=== PATIENT | female | born 1960 | race Caucasian/White ===

== ENCOUNTER 2017-09-03 17:11 | Emergency (ER) | payer OTHER ==
[2017-09-03] MEDS ORDERED: BENADRYL 50 MG/ML IV ONE (17:34)
[2017-09-03] MEDS ORDERED: Sodium Chloride 0.9% 1000 ML 1,000 ML IV STA (17:34)
[2017-09-03] MEDS ORDERED: DUONEB 0.5-3 MG/3 ml Neb IH ONE ×2 (17:34→17:48)
[2017-09-03] MEDS ORDERED: solu-MEDROL 125 MG IV ONE (17:34)
--- NOTE | 2017-09-03 17:39 | ERPHSYRPT ---
- History of Present Illness Time Seen by Provider: 09/03/17 17:36 Source: patient Exam Limitations: no limitations Patient Subjective Stated Complaint: concern for possible allergic reaction; states took an amoxicillin (refill) and was eating dinner when began having c/o tongue swelling and states voice was hoarse Triage Nursing Assessment: patient ambulatory to room; lungs CTA bilat, voice is hoarse which patient claims is new, cough, pt states has been having "upper respiratory infection" No vomiting, nausea, hives noted on assessment Physician History: mild tongue swelling and hoarse today at dinner after taking amoxil, no rash, no drooling, no stridor, hx smoking and htn, no fever Allergies/Adverse Reactions: No Known Drug Allergies Allergy (Unverified 01/04/15 05:49) Home Medications: Trandolapril/Verapamil HCl [Tarka ER 1-240 mg Tablet] 1 each PO DAILY 01/03/15 [ History] Hx Influenza Vaccination/Date Given: Yes Immunizations Up to Date: Yes - Review of Systems Constitutional: No Fever Eyes: No Symptoms Ears, Nose, & Throat: Mouth Swelling, No Mouth Pain, No Throat Swelling, No Painful Swallowing, No Stridor Respiratory: Dyspnea Cardiac: No Symptoms Abdominal/Gastrointestinal: No Symptoms Musculoskeletal: No Symptoms Skin: No Symptoms Neurological: No Symptoms Psychological: No Symptoms - Past Medical History Pertinent Past Medical History: No Neurological History: No Pertinent History ENT History: No Pertinent History Cardiac History: Hypertension Respiratory History: No Pertinent History Endocrine Medical History: No Pertinent History Musculoskeletal History: No Pertinent History GI Medical History: No Pertinent History History: No Pertinent History Psycho-Social History: No Pertinent History Female Reproductive Disorders: No Pertinent History - Past Surgical History Past Surgical History: No Neuro Surgical History: No Pertinent History Cardiac: No Pertinent History Respiratory: No Pertinent History Gastrointestinal: No Pertinent History Genitourinary: No Pertinent History Musculoskeletal: No Pertinent History Female Surgical History: No Pertinent History - Social History Smoking Status: Current every day smoker How long have you smoked: yrs Exposure to second hand smoke: Yes Drug Use: none - Nursing Vital Signs Nursing Vital Signs: Initial Vital Signs Temperature 97.8 F 09/03/17 17:22 Pulse Rate 100 H 09/03/17 17:22 Respiratory Rate 24 09/03/17 17:22 Blood Pressure 163/99 09/03/17 17:22 O2 Sat by Pulse Oximetry 92 L 09/03/17 17:22 Pain Scale Pain Intensity 0 - Physical Exam General Appearance: no apparent distress Eye Exam: PERRL/EOMI Ears, Nose, Throat Exam: pharynx normal, moist mucous membranes, other (mild tongue swelling) Neck Exam: normal inspection Respiratory Exam: normal breath sounds, No respiratory distress Cardiovascular Exam: regular rate/rhythm Gastrointestinal/Abdomen Exam: soft, No tenderness Extremity Exam: normal inspection, normal range of motion Neurologic Exam: alert, oriented x 3, cooperative Skin Exam: normal color, warm, dry SpO2 Interpretation: borderline oxygenation SpO2: 93 Oxygen Delivery: Room Air - Course Nursing assessment & vital signs reviewed: Yes Ordered Tests: Active Orders 24 hr Category Date Time Status IV Insertion STAT Care 09/03/17 17:34 Active Pulse Oximetry (ED) STAT Care 09/03/17 17:34 Active Respiratory Nebulizer STAT RT 09/03/17 17:35 Completed Medication Summary Generic Name Dose Route Start Last Admin Trade Name Freq PRN Reason Stop Dose Admin Sodium Chloride 1,000 mls @ 999 mls/hr 09/03/17 17:34 09/03/17 17:59 Sodium Chloride 0.9% 1000 Ml IV 09/03/17 18:34 999 mls/hr .Q1H1M STA Administration Discontinued Medications Generic Name Dose Route Start Last Admin Trade Name Freq PRN Reason Stop Dose Admin Albuterol/Ipratropium 3 ml 09/03/17 17:34 09/03/17 17:50 Duoneb 0.5-3 Mg/3 Ml Neb IH 09/03/17 17:35 3 ml STAT ONE Administration Albuterol/Ipratropium Confirm 09/03/17 17:48 Duoneb 0.5-3 Mg/3 Ml Neb Administered 09/03/17 17:49 Dose 3 ml IH .STK-MED ONE Diphenhydramine HCl 50 mg 09/03/17 17:34 09/03/17 17:59 Benadryl 50 Mg/Ml IV 09/03/17 17:35 50 mg STAT ONE Administration Diphenhydramine HCl Confirm 09/03/17 17:54 Benadryl 50 Mg/Ml Administered 09/03/17 17:55 Dose 50 mg .ROUTE .STK-MED ONE Sodium Chloride Confirm 09/03/17 17:54 Sodium Chloride 0.9% 1000 Ml Administered 09/03/17 17:55 Dose 1,000 mls @ ud .ROUTE .STK-MED ONE Methylprednisolone Sodium Succinate 125 mg 09/03/17 17:34 09/03/17 17:59 Solu-Medrol 125 Mg IV 09/03/17 17:35 125 mg STAT ONE Administration Methylprednisolone Sodium Succinate Confirm 09/03/17 17:54 Solu-Medrol 125 Mg Administered 09/03/17 17:55 Dose 125 mg .ROUTE .STK-MED ONE - Progress Progress: improved Discussed with : Breezy Will see patient in: office Counseled pt/family regarding: diagnosis, need for follow-up (medrol dose pk, EpiPen Kit, benadryl warnings given, proventil inhaler) - Departure Time of Disposition: 18:23 Departure Disposition: Home Clinical Impression: Allergic reaction Qualifiers: Encounter type: initial encounter Qualified Code(s): T78.40XA - Allergy, unspecified, initial encounter Condition: Stable Critical Care Time: No Referrals: JESS ORELLANA MD [Primary Care Provider] - Additional Instructions: see your doctor return if worse stop amoxicillin script for medrol, epi pen kit and proventil inhaler
[2017-09-03] MEDS ORDERED: Sodium Chloride 0.9% 1000 ML 1,000 ML ONE (17:54)
[2017-09-03] MEDS ORDERED: solu-MEDROL 125 MG ONE (17:54)
[2017-09-03] MEDS ORDERED: BENADRYL 50 MG/ML ONE (17:54)
[2017-09-03 18:11] VITALS: BP 159/103; PULSE 94
[2017-09-03 18:25] VITALS: O2SAT 93
== END 2017-09-03 18:47 | disposition home or self-care (01) ==
LOC: ED 17:11
DX: T78.40XA Allergy, unspecified, initial encounter (principal)
CPT/HCPCS: 36000; 94640; 96360; 96374; 96375; 99283; 99284; J1200; J2930; A9270-GY

== ENCOUNTER 2019-02-25 12:37 | Emergency (ER) | payer OTHER ==
--- NOTE | 2019-02-25 12:50 | ERPHSYRPT ---
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 pt is a smoker and has htn. pt has never had this before. pt denies cp and denies abd pain. denies soa. 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) Severity: mild Character of Deficits: altered sensation (left face), Left Facial Deficits: no difficulties Baseline/Normal Cognition: alert oriented x 3 Current Cognition: alert oriented x 3 Baseline Gait: walks w/o assistance Associated Symptoms: paresthesia (left face), No confusion, No loss of consciousness, No slurred speech, No trouble walking, No vision changes, No chest pain, No headache Allergies/Adverse Reactions: No Known Drug Allergies Allergy (Unverified 01/04/15 05:49) Home Medications: Trandolapril/Verapamil HCl [Tarka ER 1-240 mg Tablet] 1 each PO DAILY 01/03/15 [ History] Bupropion HCl Xl 150 mg [Wellbutrin XL 150 MG] 150 mg PO DAILY 02/25/19 [ History] Hx Influenza Vaccination/Date Given: Yes - Review of Systems Constitutional: No Symptoms Eyes: No Symptoms Ears, Nose, & Throat: No Symptoms Respiratory: No Symptoms Cardiac: No Symptoms Abdominal/Gastrointestinal: No Symptoms Genitourinary Symptoms: No Symptoms Musculoskeletal: No Symptoms Skin: No Symptoms Neurological: Parasthesia (left face), No Dizziness, No Focal Weakness, No Gait Changes, No Headache, No Speech Changes Psychological: No Symptoms Endocrine: No Symptoms Hematologic/Lymphatic: No Symptoms Immunological/Allergic: No Symptoms All Other Systems: Reviewed and Negative - Past Medical History Pertinent Past Medical History: No Neurological History: No Pertinent History ENT History: No Pertinent History Cardiac History: Hypertension Respiratory History: No Pertinent History Endocrine Medical History: No Pertinent History Musculoskeletal History: No Pertinent History GI Medical History: No Pertinent History History: No Pertinent History Psycho-Social History: No Pertinent History Female Reproductive Disorders: No Pertinent History - Past Surgical History Past Surgical History: No Neuro Surgical History: No Pertinent History Cardiac: No Pertinent History Respiratory: No Pertinent History Gastrointestinal: No Pertinent History Genitourinary: No Pertinent History Musculoskeletal: No Pertinent History Female Surgical History: No Pertinent History - Social History Smoking Status: Current every day smoker How long have you smoked: yrs Exposure to second hand smoke: Yes Drug Use: none Patient Lives Alone: No - Female History Hx Now: No - Nursing Vital Signs Nursing Vital Signs: Initial Vital Signs Temperature 98.9 F 02/25/19 12:49 Pulse Rate 88 02/25/19 12:49 Blood Pressure 187/97 02/25/19 12:49 O2 Sat by Pulse Oximetry 94 L 02/25/19 12:49 Pain Scale Pain Intensity 0 - [place] Coma Scale Best Eye Response ([place]): (4) open spontaneously Best Verbal Response ([place]): (5) oriented Best Motor Response ([place]): (6) obeys commands [place] Total: 15 - Physical Exam General Appearance: no apparent distress, alert, anxiety Eye Exam: bilateral eye: normal inspection, PERRL, EOMI Ears, Nose, Throat Exam: normal ENT inspection, TMs normal, moist mucous membranes Neck Exam: normal inspection, non-tender, supple, full range of motion Respiratory: normal breath sounds, lungs clear, airway intact, No chest tenderness, No respiratory distress Cardiovascular: regular rate/rhythm, normal heart sounds, normal peripheral pulses Gastrointestinal: soft, normal bowel sounds, No tenderness Pelvic Exam: not done Rectal Exam: not done Back Exam: normal inspection, normal range of motion, No CVA tenderness, No vertebral tenderness Extremity Exam: normal inspection, normal range of motion, pelvis stable Mental Status: alert, oriented x 3, 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 Exam: normal hearing, normal speech, PERRL Coordination/Gait: normal finger to nose, normal gait, normal cerebellar function Motor/Sensory: no motor deficit, no sensory deficit, no pronator drift Skin Exam: normal color, warm SpO2 Interpretation: normal O2 Delivery: Room Air - Course Nursing assessment & vital signs reviewed: Yes EKG Interpreted by Me: RATE (89), Sinus Rhythm, NORMAL AXIS, NORMAL INTERVALS, NORMAL QRS, Right Bundle Branch Block Ordered Tests: Active Orders 24 hr Category Date Time Status Curriculum Supervisor STAT Care 02/25/19 12:50 Active EKG-ER Only STAT Care 02/25/19 12:50 Active IV Insertion STAT Care 02/25/19 12:50 Active NPO (ED) STAT Care 02/25/19 12:50 Active HEAD WITHOUT CONTRAST [CT] Stat Exams 02/25/19 12:50 Completed CBC W DIFF Stat Lab 02/25/19 13:14 Completed CMP Stat Lab 02/25/19 13:14 Completed TROPONIN Q3H Lab 02/25/19 13:14 Completed TROPONIN Q3H Lab 02/25/19 16:15 Ordered TROPONIN Q3H Lab 02/25/19 19:15 Ordered TROPONIN Q3H Lab 02/25/19 22:15 Ordered UA W/RFX UR CULTURE Stat Lab 02/25/19 14:00 Completed Medication Summary Discontinued Medications Generic Name Dose Route Start Last Admin Trade Name Gerardoq PRN Reason Stop Dose Admin Enalaprilat 0.625 mg 02/25/19 13:02 02/25/19 13:17 Vasotec I.V. 2.5 Mg IV 02/25/19 13:03 0.625 mg STAT ONE Administration Enalaprilat Confirm 02/25/19 13:14 Vasotec I.V. 2.5 Mg Administered 02/25/19 13:15 Dose 2.5 mg IV .[employer] ONE Lab/Rad Data: Laboratory Result Diagrams 02/25/19 13:14 02/25/19 13:14 Laboratory Results 02/25/19 02/25/19 02/25/19 Range/Units 14:00 13:14 13:14 WBC (4.0-10.5) K/mm3 RBC (4.1-5.4) M/mm3 Hgb (12.0-16.0) gm/dl Hct (35-47) % MCV (78-100) fl MCH (26-32) pg MCHC (32-36) g/dl RDW (11.5-14.0) % Plt Count (150-450) K/mm3 MPV (6-9.5) fl Gran % (36.0-66.0) % Eos # (Auto) (0-0.5) Absolute Lymphs (auto) (1.0-4.6) Absolute Monos (auto) (0.0-1.3) Lymphocytes % (24.0-44.0) % Monocytes % (0.0-12.0) % Eosinophils % (0.00-5.0) % Basophils % (0.0-0.4) % Absolute Granulocytes (1.4-6.9) Basophils # (0-0.4) Sodium 141 (137-145) mmol/L Potassium 4.1 (3.5-5.1) mmol/L Chloride 108 H (98-107) mmol/L Carbon Dioxide 22 (22-30) mmol/L Anion Gap 14.1 (5-15) MEQ/L BUN 21 H (7-17) mg/dL Creatinine 0.73 (0.52-1.04) mg/dL Estimated GFR > 60.0 ML/MIN Glucose 108 H (74-106) mg/dL Calcium 9.4 (8.4-10.2) mg/dL Total Bilirubin 0.20 (0.2-1.3) mg/dL AST 21 (14-36) U/L ALT 20 (0-35) U/L Alkaline Phosphatase 95 (38-126) U/L Troponin I < 0.012 (0.000-0.034) ng/mL Serum Total Protein 7.7 (6.3-8.2) g/dL Albumin 4.5 (3.5-5.0) g/dL Urine Color YELLOW (YELLOW) Urine Appearance CLEAR (CLEAR) Urine pH 6.0 (5-6) Ur Specific [place] 1.017 (1.005-1.025) Urine Protein NEGATIVE (Negative) Urine Ketones NEGATIVE (NEGATIVE) Urine Blood NEGATIVE (0-5) Mir/ul Urine Nitrite NEGATIVE (NEGATIVE) Urine Bilirubin NEGATIVE (NEGATIVE) Urine Urobilinogen NEGATIVE (0-1) mg/dL Ur Leukocyte Esterase NEGATIVE (NEGATIVE) Urine WBC (Auto) NONE (0-5) /HPF Urine RBC (Auto) 3-5 (0-2) /HPF U Epithel Cells (Auto) RARE (FEW) /HPF Urine Bacteria (Auto) RARE (NEGATIVE) /HPF Urine Culture Reflexed NO (NO) Urine Glucose NEGATIVE (NEGATIVE) mg/dL 02/25/19 Range/Units 13:14 WBC 8.0 (4.0-10.5) K/mm3 RBC 4.40 (4.1-5.4) M/mm3 Hgb 13.7 (12.0-16.0) gm/dl Hct 42.4 (35-47) % MCV 96.4 (78-100) fl MCH 31.1 (26-32) pg MCHC 32.3 (32-36) g/dl RDW 13.0 (11.5-14.0) % Plt Count 272 (150-450) K/mm3 MPV 9.0 (6-9.5) fl Gran % 59.2 (36.0-66.0) % Eos # (Auto) 0.18 (0-0.5) Absolute Lymphs (auto) 2.35 (1.0-4.6) Absolute Monos (auto) 0.71 (0.0-1.3) Lymphocytes % 29.3 (24.0-44.0) % Monocytes % 8.9 (0.0-12.0) % Eosinophils % 2.2 (0.00-5.0) % Basophils % 0.4 (0.0-0.4) % Absolute Granulocytes 4.74 (1.4-6.9) Basophils # 0.03 (0-0.4) Sodium (137-145) mmol/L Potassium (3.5-5.1) mmol/L Chloride (98-107) mmol/L Carbon Dioxide (22-30) mmol/L Anion Gap (5-15) MEQ/L BUN (7-17) mg/dL Creatinine (0.52-1.04) mg/dL Estimated GFR ML/MIN Glucose (74-106) mg/dL Calcium (8.4-10.2) mg/dL Total Bilirubin (0.2-1.3) mg/dL AST (14-36) U/L ALT (0-35) U/L Alkaline Phosphatase (38-126) U/L Troponin I (0.000-0.034) ng/mL Serum Total Protein (6.3-8.2) g/dL Albumin (3.5-5.0) g/dL Urine Color (YELLOW) Urine Appearance (CLEAR) Urine pH (5-6) Ur Specific [place] (1.005-1.025) Urine Protein (Negative) Urine Ketones (NEGATIVE) Urine Blood (0-5) Mir/ul Urine Nitrite (NEGATIVE) Urine Bilirubin (NEGATIVE) Urine Urobilinogen (0-1) mg/dL Ur Leukocyte Esterase (NEGATIVE) Urine WBC (Auto) (0-5) /HPF Urine RBC (Auto) (0-2) /HPF U Epithel Cells (Auto) (FEW) /HPF Urine Bacteria (Auto) (NEGATIVE) /HPF Urine Culture Reflexed (NO) Urine Glucose (NEGATIVE) mg/dL - Progress Progress: unchanged, re-examined Progress Note: 02/25/19 14:10 ct head- no acute process. sinuses clear. no tumors present 02/25/19 15:[address] ruelas, pts pcp. i reviewed pts hx, condition, lab, ekg and xray results. he agrees pt ok to be discharged to home. pt to call his office tomorrow to make a follow up appt. Counseled pt/family regarding: lab results, diagnosis, need for follow-up, rad results - Departure Departure Disposition: Home Clinical Impression: Hypertensive urgency, Left facial numbness Condition: Stable Critical Care Time: Yes Critical Care Time(excluding separately billable procedures): 30-74 minutes Referrals: JESS RUELAS MD [Primary Care Provider] - Additional Instructions: take medications as prescribed. keep a morning and evening log of your blood pressure. call dr. ruelas' office tomorrow for further management.
[2019-02-25] MEDS ORDERED: VASOTEC I.V. 2.5 MG IV ONE ×2 (13:02→13:14)
[2019-02-25 13:11] LABS: BASOPHIL % 0.4 % (0.0-0.4); Basophil (Absolute #) 0.03 (0-0.4); Eosinophil % 2.2 % (0.00-5.0); Eosinophil (Absolute #) 0.18 (0-0.5); Granulocyte Absolute (ANC) 4.74 (1.4-6.9); Granulocytes % 59.2 % (36.0-66.0); Hematocrit 42.4 % (35-47); Hemoglobin 13.7 gm/dl (12.0-16.0); Lymphocyte (Absolute #) 2.35 (1.0-4.6); Lymphocytes % 29.3 % (24.0-44.0); Mean Cell Volume 96.4 fl (78-100); Mean Corpuscular Hemoglobin 31.1 pg (26-32); Mean Corpuscular Hgb Concent. 32.3 g/dl (32-36); Monocyte (Absolute #) 0.71 (0.0-1.3); Monocytes % 8.9 % (0.0-12.0); Platelet Count 272 K/mm3 (150-450)
[2019-02-25 13:21] LABS: ALBUMIN 4.5 g/dL (3.5-5.0); ALKALINE PHOSPHATASE 95 U/L (38-126); ANION GAP 14.1 MEQ/L (5-15); BLOOD UREA NITROGEN 21 mg/dL (7-17); CHLORIDE 108 mmol/L (98-107); Calcium 9.4 mg/dL (8.4-10.2); Carbon Dioxide 22 mmol/L (22-30); Creatinine 1 0.73 mg/dL (0.52-1.04); Glucose 108 mg/dL (74-106); Potassium 4.1 mmol/L (3.5-5.1); SGOT/AST 21 U/L (14-36); SGPT/ALT 20 U/L (0-35); SODIUM 141 mmol/L (137-145); Total Protein 7.7 g/dL (6.3-8.2)
--- NOTE | 2019-02-25 13:28 | XRAY ---
Indication: Left facial numbness. Multiple contiguous axial images obtained through the head without contrast. Comparison: None Age-appropriate global atrophy and minimal periventricular degenerative micro-ischemia bilaterally. No acute intracranial hemorrhage, abnormal extra-axial fluid collection, or mass effect. Fourth ventricle is midline without hydrocephalus. [place]-white matter differentiation preserved. Bony calvarium intact. Visualized paranasal sinuses and mastoid air cells are clear. Impression: Normal aging brain including atrophy and degenerative micro-ischemia. No acute intracranial abnormalities. CT DI 68.51
[2019-02-25 14:22] LABS: Appearance CLEAR (CLEAR); Bacteria RARE /HPF (NEGATIVE); Bilirubin NEGATIVE (NEGATIVE); Blood NEGATIVE Ery/ul (0-5); Epithelial Cells RARE /HPF (FEW); Glucose NEGATIVE (NEGATIVE); Ketones NEGATIVE (NEGATIVE); Leukocyte Esterase NEGATIVE (NEGATIVE); Nitrite NEGATIVE (NEGATIVE); Protein,Urine Dip NEGATIVE (Negative); Specific Gravity 1.017 (1.005-1.025); Urobilinogen NEGATIVE mg/dL (0-1)
[2019-02-25 15:17] VITALS: BP 138/96; PULSE 69; O2SAT 97
== END 2019-02-25 15:25 | disposition home or self-care (01) ==
LOC: ED 12:37
DX: I16.0 Hypertensive urgency (principal); R20.0 Anesthesia of skin
CPT/HCPCS: 36415; 70450; 80053; 81001; 84484; 85025; 93005; 93041; 96374; 99284

== ENCOUNTER 2021-08-29 05:48 | Day surgery (SDC) | payer OTHER ==
[2021-08-29] MEDS ORDERED: Lactated Ringers 1,000 ML IV SCH (06:30)
[2021-08-29] MEDS ORDERED: DIPRIVAN 200 MG/20 ML IV ONE (07:30)
[2021-08-29] MEDS ORDERED: Versed 2 MG/2 ML Injection ONE (07:43)
--- NOTE | 2021-08-29 10:30 | OP ---
SURGERY DATE/TIME: 08/29/2021 0734 PREOPERATIVE DIAGNOSIS: Screening colonoscopy. POSTOPERATIVE DIAGNOSIS: Rectal polyp. PROCEDURE: Colonoscopy. SURGEON: Carroll Tijerina M.D. ANESTHESIA: MAC by Oral Johnson CRNA. ESTIMATED BLOOD LOSS: Minimal. SPECIMENS: Cold forceps biopsy of rectal polyp. DESCRIPTION OF PROCEDURE: After informed written consent was obtained, the patient was taken to the endoscopy suite. She was placed in left lateral decubitus position. Anesthesia was titrated to desired level of consciousness. She was noted to have a mild rectal prolapse but normal sphincter tone, no internal lesions on rectal exam. The scope was inserted into the rectum and sequentially the entire colonic mucosa was traversed. The level of cecum was reached and verified with direct visualization of the ileocecal valve. Upon withdrawal careful mucosal inspection revealed no gross abnormalities. Prep was noted to be fair. There was a small sessile polyp in the rectal area which was grasped with forceps and removed with minimal blood loss. Retroflexion showed no internal lesions. The scope was removed and the patient was transferred to the recovery room in good condition.
== END 2021-08-29 08:49 | disposition home or self-care (01) ==
LOC: SDC 05:48
PROVIDERS: ATTEND Family Medicine
DX: Z12.11 Encounter for screening for malignant neoplasm of colon (principal); K62.1 Rectal polyp; K63.5 Polyp of colon
CPT/HCPCS: 88305; J2250; J2704

== ENCOUNTER 2024-06-21 03:22 | Emergency (ER) | payer MEDICARE ==
[2024-06-21 03:36] VITALS: TEMP 97.4
--- NOTE | 2024-06-21 03:37 | ERPHSYRPT ---
- History of Present Illness Time Seen by Provider: 06/21/24 03:35 Historian: patient Exam Limitations: no limitations Patient Subjective Stated Complaint: c/o flank pain Triage Nursing Assessment: Pt brought to ED by with c/o of left sides flank pain. rates pain 7/10 that radiates towards the middle of the back and to the side. states pain started 30 minutes prior to coming in, denies N/V/D, hypertensive, skin w/n/d, bowel sounds present in all 4 quads, Last BM 06/20/2024, denies difficulty urinating, pulses normal, brought in by wheelchair, pt doesn't appear to be in any distress at this time. 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 Pt reports she woke up from sleep to take some cough medicine, reports she started having significant left flank pain at that time. Pt denies any nausea, vomiting, fevers at home, does endorse some sob 2/2 her pain. Pt denies any hx of abdominal surgeries or kidney stones. Pt denies dysuria, frequency or urgency. Pt reports las BM was yesterday. 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) Activities at Onset: sleep Quality: sharpness Abdominal Pain Onset Location: flank Pain Radiation: LLQ Severity of Pain-Max: moderate Severity of Pain-Current: moderate Modifying Factors: Improves With: nothing Associated Symptoms: shortness of breath, No back, No chest pain, No diapho resis, No diarrhea, No fever/chills, No nausea, No syncope, No vomiting Previous symptoms: no prior history Allergies/Adverse Reactions: No Known Drug Allergies Allergy (Verified 06/21/24 03:37) Home Medications: Trandolapril/Verapamil HCl [Tarka ER 1-240 mg Tablet] 4 - 240 mg PO DAILY 01/03/15 [History] Bupropion HCl Xl 150 mg [Wellbutrin XL 150 MG] 150 mg PO DAILY 02/25/19 [History] Atorvastatin Calcium [Lipitor 20MG Tablet] 20 mg PO DAILY 08/23/21 [History] Omeprazole 40 mg PO DAILY 08/23/21 [History] Cetirizine HCl [Zyrtec] 10 mg PO DAILY 08/29/21 [History] Vitamin B Complex [Hi B Complex] 1 each PO DAILY 08/29/21 [History] Calcium Carb/D3/Magnesium/Zinc [Yamil Mag Zinc-D Tablet] 1 tab PO DAILY 06/21/24 [History] Hx Tetanus, Diphtheria Vaccination/Date Given: Yes Hx Influenza Vaccination/Date Given: Yes Hx Pneumococcal Vaccination/Date Given: Yes Travel Risk - International Travel Have you traveled outside of the country in past 3 weeks: No - Emerging Infectious Disease Are you exhibiting symptoms associated with any current EIDs: No - Review of Systems Constitutional: No Fever, No Chills Respiratory: Cough, No Dyspnea, No Stridor, No Wheezing Cardiac: No Chest Pain, No Edema, No Palpitations Abdominal/Gastrointestinal: Abdominal Pain, No Nausea, No Vomiting, No Diarrhea, No Constipation, No Hematemesis, No Hematochezia Genitourinary Symptoms: Flank Pain, No Dysuria, No Frequency, No Hematuria, No Urgency - Past Medical History Pertinent Past Medical History: No Neurological History: No Pertinent History ENT History: No Pertinent History Cardiac History: High Cholesterol, Hypertension Respiratory History: No Pertinent History Endocrine Medical History: No Pertinent History Musculoskeletal History: No Pertinent History GI Medical History: GERD History: No Pertinent History Psycho-Social History: No Pertinent History Female Reproductive Disorders: No Pertinent History - Past Surgical History Past Surgical History: Yes Neuro Surgical History: No Pertinent History Cardiac: No Pertinent History Respiratory: No Pertinent History Gastrointestinal: No Pertinent History Genitourinary: No Pertinent History Musculoskeletal: No Pertinent History Female Surgical History: No Pertinent History Other Surgical History: colonoscopy - Social History Smoking Status: Former smoker How long have you smoked: yrs Exposure to second hand smoke: No Drug Use: none Patient Lives Alone: No - Social Determinants of Health Will the patient participate in the screening: Yes Do you worry about a steady place to live?: No Do you have any problems with any of the following?: No known problems In the past 12 months,have you had to go without utilities?: No Transportation Issues: No Has anyone in your support network made you feel unsafe?: No Have you or anyone in your house had to go without enough: No - Nursing Vital Signs Nursing Vital Signs: Initial Vital Signs Temperature 97.4 F 06/21/24 03:23 Pulse Rate 87 06/21/24 03:23 Blood Pressure 208/104 06/21/24 03:23 O2 Sat by Pulse Oximetry 98 06/21/24 03:23 Pain Scale Pain Intensity 5 - Physical Exam General Appearance: no apparent distress, alert Respiratory Exam: normal breath sounds, lungs clear, airway intact, No chest tenderness, No respiratory distress Cardiovascular Exam: regular rate/rhythm, normal heart sounds, normal peripheral pulses Gastrointestinal/Abdomen Exam: soft, normal bowel sounds, No tenderness, No distention Back Exam: CVA tenderness (left) Neurologic Exam: alert, oriented x 3, cooperative SpO2 Interpretation: normal SpO2: 98 O2 Delivery: Room Air Ordered Tests: Active Orders 24 hr Category Date Time Status ABDOMEN AND PELVIS W/0 CONTRAS [CT] Stat Exams 06/21/24 03:36 Completed CHEST 1 VIEW (PORTABLE) Stat Exams 06/21/24 04:42 Taken CBC W DIFF Stat Lab 06/21/24 03:52 Completed CMP Stat Lab 06/21/24 03:52 Completed LIPASE Stat Lab 06/21/24 03:52 Completed TROPONIN Q4H Lab 06/21/24 03:52 Completed TROPONIN Q4H Lab 06/21/24 07:45 Ordered TROPONIN Q4H Lab 06/21/24 11:45 Ordered UA W/RFX UR CULTURE Stat Lab 06/21/24 04:50 Completed Medication Summary Discontinued Medications Generic Name Dose Route Start Last Admin Trade Name Freq PRN Reason Stop Dose Admin Sodium Chloride 1,000 mls @ 999 mls/hr 06/21/24 03:35 06/21/24 04:43 Sodium Chloride 0.9% 1000 Ml IV 06/21/24 04:35 Infused .Q1H1M STA Infusion Sodium Chloride Confirm 06/21/24 03:39 Sodium Chloride 0.9% 1000 Ml Administered 06/21/24 03:40 Dose 1,000 mls @ ud .ROUTE .STK-MED ONE Ketorolac Tromethamine 30 mg 06/21/24 03:35 06/21/24 03:42 Ketorolac Tromethamine 30 Mg/Ml Inj IV 06/21/24 03:36 30 mg STAT ONE Administration Ketorolac Tromethamine Confirm 06/21/24 03:39 Ketorolac Tromethamine 30 Mg/Ml Inj Administered 06/21/24 03:40 Dose 30 mg .ROUTE .STK-MED ONE Ondansetron HCl 4 mg 06/21/24 03:35 06/21/24 03:42 Ondansetron Hcl 4 Mg/2 Ml Vial IV 06/21/24 03:36 4 mg STAT ONE Administration Ondansetron HCl Confirm 06/21/24 03:39 Ondansetron Hcl 4 Mg/2 Ml Vial Administered 06/21/24 03:40 Dose 4 mg .ROUTE .STK-MED ONE Lab/Rad Data: Laboratory Result Diagrams 06/21/24 03:52 06/21/24 03:52 Laboratory Results 06/21/24 06/21/24 06/21/24 Range/Units 04:50 03:52 03:52 WBC (3.98-10.04) x10^3/uL RBC (3.93-5.22) x10^6/uL Hgb (11.2-15.7) g/dL Hct (34.1-44.9) % MCV (79.4-94.8) fL MCH (25.6-32.2) pg MCHC (32.2-35.5) g/dL RDW (11.7-14.4) % Plt Count (182-369) x10^3/uL MPV (9.4-12.3) fL Gran % (34.0-71.1) % Immature Gran % (Auto) (0.001-0.429) % Nucleat RBC Rel Count (0.00-0.2) % Eos # (Auto) (0.04-0.36) x10^3/uL Immature Gran # (Auto) (0.001-0.031) x10^3u/L Absolute Lymphs (auto) (1.18-3.74) x10^3/uL Absolute Monos (auto) (0.24-0.86) x10^3/uL Absolute Nucleated RBC (0.00-0.012) x10^3u/L Lymphocytes % (19.3-51.7) % Monocytes % (4.7-12.5) % Eosinophils % (0.7-5.8) % Basophils % (0.1-1.2) % Absolute Granulocytes (1.56-6.13) x10^3/uL Basophils # (0.01-0.08) x10^3/uL Sodium 138 (135-145) mmol/L Potassium 4.0 (3.5-5.1) mmol/L Chloride 108 H (98-107) mmol/L Carbon Dioxide 24 (22-30) mmol/L Anion Gap 10.2 (5-15) MEQ/L BUN 24 H (7-17) mg/dL Creatinine 0.92 (0.52-1.04) mg/dL Estimated GFR 69.1 ML/MIN Glucose 129 H (74-106) mg/dL Calcium 9.3 (8.4-10.2) mg/dL Total Bilirubin 0.30 (0.2-1.3) mg/dL AST 33 (14-36) U/L ALT 35 (0-35) U/L Alkaline Phosphatase 81 (38-126) U/L Troponin I < 0.012 (0.000-0.033) ng/mL Serum Total Protein 6.5 (6.3-8.2) g/dL Albumin 4.1 (3.5-5.0) g/dL Lipase 207 (23-300) U/L Urine Color Yellow (Yellow) Urine Appearance Clear (Clear) Urine pH 5.5 (4.6-8.0) Ur Specific [place] >=1.030 A (1.005-1.030) Urine Protein Negative (Negative) Urine Glucose (UA) Negative (Negative) mg/dL Urine Ketones Trace A (Negative) Urine Blood Negative (Negative) Urine Nitrite Negative (Negative) Urine Bilirubin Negative (Negative) Urine Urobilinogen 1.0 A (0.2) mg/dL Ur Leukocyte Esterase Negative (Negative) U Hyaline Cast (Auto) NONE SEEN (0-2) /LPF Urine Microscopic RBC 0-2 (0-5) /HPF Urine Microscopic WBC 0-2 (0-5) /HPF Ur Epithelial Cells Few (None Seen) /HPF Urine Bacteria None Seen (None Seen) /HPF Urine Culture Reflexed NO (NO) 06/21/24 Range/Units 03:52 WBC 8.0 (3.98-10.04) x10^3/uL RBC 3.78 L (3.93-5.22) x10^6/uL Hgb 12.5 (11.2-15.7) g/dL Hct 35.9 (34.1-44.9) % MCV 95.0 H (79.4-94.8) fL MCH 33.1 H (25.6-32.2) pg MCHC 34.8 (32.2-35.5) g/dL RDW 13.0 (11.7-14.4) % Plt Count 302 (182-369) x10^3/uL MPV 9.2 L (9.4-12.3) fL Gran % 59.0 (34.0-71.1) % Immature Gran % (Auto) 1.4 H (0.001-0.429) % Nucleat RBC Rel Count 0.0 (0.00-0.2) % Eos # (Auto) 0.07 (0.04-0.36) x10^3/uL Immature Gran # (Auto) 0.11 H (0.001-0.031) x10^3u/L Absolute Lymphs (auto) 2.25 (1.18-3.74) x10^3/uL Absolute Monos (auto) 0.80 (0.24-0.86) x10^3/uL Absolute Nucleated RBC 0.00 (0.00-0.012) x10^3u/L Lymphocytes % 28.2 (19.3-51.7) % Monocytes % 10.0 (4.7-12.5) % Eosinophils % 0.9 (0.7-5.8) % Basophils % 0.5 (0.1-1.2) % Absolute Granulocytes 4.70 (1.56-6.13) x10^3/uL Basophils # 0.04 (0.01-0.08) x10^3/uL Sodium (135-145) mmol/L Potassium (3.5-5.1) mmol/L Chloride (98-107) mmol/L Carbon Dioxide (22-30) mmol/L Anion Gap (5-15) MEQ/L BUN (7-17) mg/dL Creatinine (0.52-1.04) mg/dL Estimated GFR ML/MIN Glucose (74-106) mg/dL Calcium (8.4-10.2) mg/dL Total Bilirubin (0.2-1.3) mg/dL AST (14-36) U/L ALT (0-35) U/L Alkaline Phosphatase (38-126) U/L Troponin I (0.000-0.033) ng/mL Serum Total Protein (6.3-8.2) g/dL Albumin (3.5-5.0) g/dL Lipase (23-300) U/L Urine Color (Yellow) Urine Appearance (Clear) Urine pH (4.6-8.0) Ur Specific [place] (1.005-1.030) Urine Protein (Negative) Urine Glucose (UA) (Negative) mg/dL Urine Ketones (Negative) Urine Blood (Negative) Urine Nitrite (Negative) Urine Bilirubin (Negative) Urine Urobilinogen (0.2) mg/dL Ur Leukocyte Esterase (Negative) U Hyaline Cast (Auto) (0-2) /LPF Urine Microscopic RBC (0-5) /HPF Urine Microscopic WBC (0-5) /HPF Ur Epithelial Cells (None Seen) /HPF Urine Bacteria (None Seen) /HPF Urine Culture Reflexed (NO) - Progress Progress: improved Progress Note: 06/21/24 05:33 labs largely unremarkable, troponin wnl, UA not suggestive of UTI or hematuria CT abd/pel showed: 1. Small right renal cortical cyst . 2. A tiny right lower calyceal stone is noted. 3. No left renal abnormality was depicted. 4. lumbar spondylosis and left-side scoliosis depicted. 5. Few scattered non-complicated colonic diverticulosis noted. pain improved w/ toradol pain likely related to lumbar/latissimus dorsi muscle strain vs sprain plan to discharge home w/ PCP follow up this week - Dr Orellana NO ibuprofen for 24 hours continue tylenol for pain relief, heating pad and gentle stretching as tolerated for discomfort return to ED if: pain becomes unbearable, lose control of bowel or bladder continence, develop blood in urine or stool, develop weakness in the lower extremities 06/21/24 05:34 Counseled pt/family regarding: lab results, diagnosis, need for follow-up, rad results Medical Desision Making - Diagnostic Testing Diagnostic test were ordered, analyzed, and reviewed by me: Yes Radiological Interpretation: Interpreted by me, Reviewed by me, Teleradiologist Report - Risk of complications Minimal Risk: Minimal risk of morbidity - Departure Departure Disposition: Home Clinical Impression: Left flank pain Condition: Stable Critical Care Time: No Referrals: JESS ORELLANA MD [Primary Care Provider] - Follow up/PCP as directed Additional Instructions: plan to discharge home w/ PCP follow up this week - Dr Orellana NO ibuprofen for 24 hours continue tylenol for pain relief, heating pad and gentle stretching as tolerated for discomfort return to ED if: pain becomes unbearable, lose control of bowel or bladder continence, develop blood in urine or stool, develop weakness in the lower extremities
[2024-06-21] MEDS ORDERED: Zofran 4 MG/2 ML VIAL ONE (03:39)
[2024-06-21] MEDS ORDERED: Sodium Chloride 0.9% 1000 ML 1,000 ML ONE (03:39)
[2024-06-21] MEDS ORDERED: TORAdol 30 mg Injection ONE (03:39)
[2024-06-21] MEDS: Sodium Chloride 0.9% 1000 ML 1,000 ML IV STA (03:42)
[2024-06-21] MEDS: TORAdol 30 mg Injection IV ONE (03:42)
[2024-06-21] MEDS: Zofran 4 MG/2 ML VIAL IV ONE (03:42)
[2024-06-21 04:05] VITALS: PULSE 74
[2024-06-21 04:10] LABS: BASOPHIL % 0.5 % (0.1-1.2); Basophil (Absolute #) 0.04 x10^3/uL (0.01-0.08); Eosinophil % 0.9 % (0.7-5.8); Eosinophil (Absolute #) 0.07 x10^3/uL (0.04-0.36); Hematocrit 35.9 % (34.1-44.9); Hemoglobin 12.5 g/dL (11.2-15.7); IMMATURE GRAN # 0.11 x10^3u/L (0.001-0.031); IMMATURE GRAN % 1.4 % (0.001-0.429); Lymphocyte (Absolute #) 2.25 x10^3/uL (1.18-3.74); Lymphocytes % 28.2 % (19.3-51.7); Mean Corpuscular Hemoglobin 33.1 pg (25.6-32.2); Mean Corpuscular Hgb Concent. 34.8 g/dL (32.2-35.5); Mean Platelet Volume 9.2 fL (9.4-12.3); Platelet Count 302 x10^3/uL (182-369); Red Blood Count 3.78 x10^6/uL (3.93-5.22)
[2024-06-21 04:15] LABS: ALBUMIN 4.1 g/dL (3.5-5.0); ANION GAP 10.2 MEQ/L (5-15); BILIRUBIN,TOTAL 0.3 mg/dL (0.2-1.3); Calcium 9.3 mg/dL (8.4-10.2); Creatinine 1 0.92 mg/dL (0.52-1.04); EST GLOMERULAR FILTRATION RATE 69.1 ML/MIN; Total Protein 6.5 g/dL (6.3-8.2)
--- NOTE | 2024-06-21 04:34 | XRAY ---
CLINICAL HISTORY: left flank pain COMPARISON: No prior studies are available for comparison. TECHNIQUE: CT of the abdomen and pelvis was performed without contrast, with the following protocol: axial images with, and reconstructed coronal and sagittal images. One of the following dose reduction techniques was utilized for this exam: Automated exposure control, adjustment of the mA and/or kV according to patient size, and use of iterative reconstruction.CTDI: 12.74 mGy , DLP : 620.47 mGy*cm . FINDINGS: Abdomen: Liver: Normal in size, shape, and density. No focal lesions, cysts, or masses were identified. Hepatic vasculature and biliary ducts are unremarkable. Gallbladder and Biliary System: The gallbladder is normal in size and shape. No wall thickening, pericholecystic fluid, or gallstones were identified. The common bile duct is normal in caliber without dilation. Pancreas: Pancreatic head, body, and tail are visualized and appear normal in size and density. No pancreatic masses or calcifications were noted. The pancreatic duct is not dilated. Spleen: Normal in size, shape, and density. No splenic lesions or masses were identified. Kidneys and Adrenal Glands: Both kidneys are normal in size, shape, and position. The right renal small cortical cyst measures about 2.2x2 cm in cross-section, tiny right lower calyceal 2.7 mm stone is seen. Cortical thickness is within normal limits. No renal calculi or hydronephrosis. Adrenal glands are unremarkable with no evidence of masses or hyperplasia. Pelvis: Urinary Bladder: Normal in contour and wall thickness. No intraluminal lesions were identified. Uterus: Normal in size and contour. No masses or abnormal thickening. Ovaries: Not well visualized but no gross abnormalities were noted. Vagina: Normal in contour and wall thickness. Cervix: No evidence of mass or abnormal thickening. Peritoneal and Retroperitoneal Structures: No free fluid or abnormal fluid collections were identified within the abdomen or pelvis. No lymphadenopathy was noted. Bowel: The visualized bowel loops are normal in caliber and appearance. No evidence of bowel obstruction or wall thickening. Few scattered non-complicated colonic diverticulosis. Bones and Soft Tissues: Pelvic bones and soft tissues are unremarkable. No fractures or abnormal masses were identified. Spondylosis of the lumbar spine is depicted. mild left side lumbar scoliosis, Elam's angle = 17.8 degrees. Aortic atherosclerotic calcifications are seen. IMPRESSION: 1. Small right renal cortical cyst . 2. A tiny right lower calyceal stone is noted. 3. No left renal abnormality was depicted. 4. lumbar spondylosis and left-side scoliosis depicted. 5. Few scattered non-complicated colonic diverticulosis noted. Electronically Signed by: Marie Edward MD. (06/21/2024 04:29:43 EDT)
[2024-06-21 05:16] LABS: Appearance Clear (Clear); Bacteria None Seen /HPF (None Seen); Bilirubin Negative (Negative); Blood Negative (Negative); Epithelial Cells Few /HPF (None Seen); Glucose, Urine Negative (Negative); Hyaline Casts NONE SEEN /LPF (0-2); Ketones Trace (Negative); Leukocyte Esterase Negative (Negative); Nitrite Negative (Negative); Ph 5.5 (4.6-8.0); Protein,Urine Dip Negative (Negative); RBC 0-2 /HPF (0-5); Specific Gravity >=1.030 (1.005-1.030); WBC 0-2 /HPF (0-5)
[2024-06-21 05:20] LABS: ADD URINE CULTURE? NO (NO)
[2024-06-21 05:37] VITALS: BP 132/98
[2024-06-21 05:39] VITALS: O2SAT 98
--- NOTE | 2024-06-21 08:18 | XRAY ---
Indication: Cough. Comparison: October 04, 2017 Portable apical lordotic chest again demonstrates normal heart and lungs. Bony thorax intact again with osteopenia and degenerative changes. No new/acute findings.
== END 2024-06-21 05:49 | disposition home or self-care (01) ==
LOC: ED 03:22
DX: R10.9 Unspecified abdominal pain (principal); E78.5 Hyperlipidemia, unspecified; I10 Essential (primary) hypertension; Z79.899 Other long term (current) drug therapy
CPT/HCPCS: 36000; 36415; 71045; 74176; 80053; 81001; 83690; 84484; 85025; 96360; 96374; 99284; J1885; J2405

== ENCOUNTER 2025-01-27 03:05 | Observation (INO) | payer MEDICARE ==
[2025-01-27] MEDS ORDERED: Sodium Chloride 0.9% 1000 ML 1,000 ML ONE (03:50)
[2025-01-27] MEDS: Sodium Chloride 0.9% 1000 ML 1,000 ML IV STA (03:52)
[2025-01-27 03:54] LABS: ALBUMIN 4.4 g/dL (3.5-5.0); ANION GAP 17.5 MEQ/L (5-15); BILIRUBIN,TOTAL 0.5 mg/dL (0.2-1.3); Calcium 8.7 mg/dL (8.4-10.2); Creatinine 1 1.16 mg/dL (0.52-1.04); Potassium 3.7 mmol/L (3.5-5.1); Total Protein 6.6 g/dL (6.3-8.2)
[2025-01-27 04:04] LABS: Hemoglobin 13.1 g/dL (11.2-15.7); Red Blood Count 4.08 x10^6/uL (3.93-5.22); White Blood Count 15.4 x10^3/uL (3.98-10.04)
[2025-01-27 04:05] LABS: Absolute Neutrophil Ct (ANC) 10.48 x10^3/uL (1.56-6.13); BASOPHIL % 0.3 % (0.1-1.2); Basophil (Absolute #) 0.05 x10^3/uL (0.01-0.08); Eosinophil % 0.5 % (0.7-5.8); Eosinophil (Absolute #) 0.07 x10^3/uL (0.04-0.36); Hematocrit 40.1 % (34.1-44.9); IMMATURE GRAN # 0.28 x10^3u/L (0.001-0.031); IMMATURE GRAN % 1.8 % (0.001-0.429); Lymphocyte (Absolute #) 3.35 x10^3/uL (1.18-3.74); Lymphocytes % 21.8 % (19.3-51.7); Mean Cell Volume 98.3 fL (79.4-94.8); Mean Corpuscular Hemoglobin 32.1 pg (25.6-32.2); Mean Corpuscular Hgb Concent. 32.7 g/dL (32.2-35.5); Monocyte (Absolute #) 1.13 x10^3/uL (0.24-0.86); Monocytes % 7.4 % (4.7-12.5); Neutrophil % 68.2 % (34.0-71.1); Platelet Count 407 x10^3/uL (182-369); Red Cell Distribution Width 12.3 % (11.7-14.4)
[2025-01-27 04:18] LABS: INFLUENZA A NEGATIVE (NEGATIVE); INFLUENZA B NEGATIVE (NEGATIVE); RESPIRATORY SYNCTIAL VIRUS NEGATIVE (NEGATIVE); SARS-CoV-2 Xpert Express NEGATIVE (NEGATIVE)
--- NOTE | 2025-01-27 04:31 | ERPHSYRPT ---
- History of Present Illness Time Seen by Provider: 01/27/25 03:20 Source: patient Exam Limitations: no limitations Patient Subjective Stated Complaint: vomiting and diarrhea x1 hour at home prior to coming in Triage Nursing Assessment: Pt brought in by EMS for c/o nausea, vomiting and diarrhea since 2am. Pt was incont of stool/diarrhea upon arrival to ER. Pt showered in ER room 7 and did have diarrhea 2 more times. Abd soft with active bs x4 quad, non tender on palpation. Pt received Zofran 4mg IV by ems and 500cc NS bolus. Pt has not vomited since arriving here. Physician History: Patient is a 64-year-old female presents to our ED via EMS from home for evaluation of nausea vomiting diarrhea generalized weakness. Upon arrival to our ED patient was incontinent of stool. Patient reports that her symptoms started approximately 2 hours prior to arrival. Patient also reports that she was on vacation in [place]. Patient had a viral illness then. A local physician prescribed a Z-Darrion and steroids. Patient has had several bowel movements while in our ED. Patient unable to produce urine at this time. Per report patient received half a liter of normal saline and route and Zofran. Patient complains of intermittent abdominal cramping. No focal or lateralizing abdominal pain. No active abdominal pain during my exam. at bedside. They voiced no other complaints or concerns at this time. We discussed the potential need for a CT abdomen pelvis in light of patient's abdominal cramping. Patient declined. Patient states she did not feel CT scan was necessary. Patient preferred to undergo treatment with the nausea medicine and fluids first. Portions of this note were created with voice recognition technology. 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 Home Medications: Trandolapril/Verapamil HCl [Tarka ER 1-240 mg Tablet] 4 - 240 mg PO DAILY 01/03/15 [History] Bupropion HCl Xl 150 mg [Wellbutrin XL 150 MG] 150 mg PO DAILY 02/25/19 [History] Atorvastatin Calcium [Lipitor 20MG Tablet] 20 mg PO HS 08/23/21 [History] Omeprazole 40 mg PO HS 08/23/21 [History] Cetirizine HCl [Zyrtec] 10 mg PO DAILY 08/29/21 [History] Calcium Carb/D3/Magnesium/Zinc [Yamil Mag Zinc-D Tablet] 1 tab PO DAILY 06/21/24 [History] Hx Tetanus, Diphtheria Vaccination/Date Given: Yes Hx Influenza Vaccination/Date Given: Yes Hx Pneumococcal Vaccination/Date Given: Yes Immunizations Up to Date: Yes Travel Risk - International Travel Have you traveled outside of the country in past 3 weeks: No - Emerging Infectious Disease Are you exhibiting symptoms associated with any current EIDs: Yes Symptoms: Diarrhea, Vomitting - Review of Systems Constitutional: No Symptoms, No Fever, No Chills Eyes: No Symptoms Ears, Nose, & Throat: No Symptoms Respiratory: No Symptoms, No Cough, No Dyspnea Cardiac: No Symptoms, No Chest Pain, No Edema, No Syncope Abdominal/Gastrointestinal: No Symptoms, No Abdominal Pain, No Nausea, No Vomiting, No Diarrhea Genitourinary Symptoms: No Symptoms, No Dysuria Musculoskeletal: No Symptoms, No Back Pain, No Neck Pain Skin: No Symptoms, No Rash Neurological: No Symptoms, No Dizziness, No Focal Weakness, No Sensory Changes Psychological: No Symptoms Endocrine: No Symptoms Hematologic/Lymphatic: No Symptoms Immunological/Allergic: No Symptoms All Other Systems: Reviewed and Negative - Past Medical History Pertinent Past Medical History: Yes Neurological History: No Pertinent History ENT History: No Pertinent History Cardiac History: High Cholesterol, Hypertension Respiratory History: No Pertinent History Endocrine Medical History: No Pertinent History Musculoskeletal History: No Pertinent History GI Medical History: GERD History: No Pertinent History Psycho-Social History: No Pertinent History Female Reproductive Disorders: No Pertinent History - Past Surgical History Past Surgical History: Yes Neuro Surgical History: No Pertinent History Cardiac: No Pertinent History Respiratory: No Pertinent History Gastrointestinal: No Pertinent History Genitourinary: No Pertinent History Musculoskeletal: Orthopedic Surgery Female Surgical History: No Pertinent History Other Surgical History: colonoscopy, left wrist - Social History Smoking Status: Former smoker Exposure to second hand smoke: No Drug Use: none - Social Determinants of Health Will the patient participate in the screening: Yes Do you worry about a steady place to live?: No Do you have any problems with any of the following?: No known problems In the past 12 months,have you had to go without utilities?: No Transportation Issues: No Has anyone in your support network made you feel unsafe?: No Have you or anyone in your house had to go w/o enough food: No - Nursing Vital Signs Nursing Vital Signs: Initial Vital Signs Temperature 96.0 F 01/27/25 03:14 Pulse Rate 66 01/27/25 03:14 Respiratory Rate 16 01/27/25 03:14 Blood Pressure 115/72 01/27/25 03:14 O2 Sat by Pulse Oximetry 99 01/27/25 03:14 Pain Scale Pain Intensity 0 - Physical Exam General Appearance: no apparent distress, alert Eye Exam: PERRL/EOMI, eyes nml inspection Ears, Nose, Throat Exam: normal ENT inspection, other (Dry oral mucous membranes) Neck Exam: normal inspection, full range of motion Respiratory Exam: normal breath sounds, lungs clear, airway intact, No respiratory distress Cardiovascular Exam: regular rate/rhythm, normal heart sounds, normal peripheral pulses Gastrointestinal/Abdomen Exam: soft, normal bowel sounds, No tenderness, No mass Back Exam: normal inspection, normal range of motion, No CVA tenderness, No vertebral tenderness Extremity Exam: normal inspection, normal range of motion, pelvis stable Neurologic Exam: alert, oriented x 3, cooperative, normal mood/affect, sensation nml, No motor deficits Skin Exam: normal color, warm, dry, No rash Lymphatic Exam: No adenopathy SpO2 Interpretation: normal SpO2: 99 O2 Delivery: Room Air - Course Nursing assessment & vital signs reviewed: Yes Ordered Tests: Active Orders 24 hr Category Date Time Status IV Insertion STAT Care 01/27/25 03:20 Active CBC W DIFF Stat Lab 01/27/25 03:39 Completed CMP Stat Lab 01/27/25 03:39 Completed UA W/RFX UR CULTURE Stat Lab 01/27/25 03:20 Ordered Transfer Order Routine Transfer 01/27/25 Ordered Medication Summary Generic Name Dose Route Start Last Admin Trade Name Freq PRN Reason Stop Dose Admin Lactated Ringer's 1,000 mls @ 125 mls/hr 01/27/25 04:31 01/27/25 04:34 Lactated Ringers IV 02/26/25 04:30 125 mls/hr .Q8H SP Administration Discontinued Medications Generic Name Dose Route Start Last Admin Trade Name Freq PRN Reason Stop Dose Admin Sodium Chloride 1,000 mls @ 999 mls/hr 01/27/25 03:20 01/27/25 03:52 Sodium Chloride 0.9% 1000 Ml IV 01/27/25 04:20 125 mls/hr .Q1H1M STA Administration Sodium Chloride Confirm 01/27/25 03:50 Sodium Chloride 0.9% 1000 Ml Administered 01/27/25 03:51 Dose 1,000 mls @ ud .ROUTE .STK-MED ONE Lab/Rad Data: Laboratory Result Diagrams 01/27/25 03:39 01/27/25 03:39 Laboratory Results 01/27/25 01/27/25 01/27/25 Range/Units 03:39 03:39 03:39 WBC 15.4 H (3.98-10.04) x10^3/uL RBC 4.08 (3.93-5.22) x10^6/uL Hgb 13.1 (11.2-15.7) g/dL Hct 40.1 (34.1-44.9) % MCV 98.3 H (79.4-94.8) fL MCH 32.1 (25.6-32.2) pg MCHC 32.7 (32.2-35.5) g/dL RDW 12.3 (11.7-14.4) % Plt Count 407 H (182-369) x10^3/uL MPV 9.0 L (9.4-12.3) fL Gran % 68.2 (34.0-71.1) % Immature Gran % (Auto) 1.8 H (0.001-0.429) % Nucleat RBC Rel Count 0.0 (0.00-0.2) % Eos # (Auto) 0.07 (0.04-0.36) x10^3/uL Immature Gran # (Auto) 0.28 H (0.001-0.031) x10^3u/L Absolute Lymphs (auto) 3.35 (1.18-3.74) x10^3/uL Absolute Monos (auto) 1.13 H (0.24-0.86) x10^3/uL Absolute Nucleated RBC 0.00 (0.00-0.012) x10^3u/L Lymphocytes % 21.8 (19.3-51.7) % Monocytes % 7.4 (4.7-12.5) % Eosinophils % 0.5 L (0.7-5.8) % Basophils % 0.3 (0.1-1.2) % Absolute Granulocytes 10.48 H (1.56-6.13) x10^3/uL Basophils # 0.05 (0.01-0.08) x10^3/uL Sodium 139 (135-145) mmol/L Potassium 3.7 (3.5-5.1) mmol/L Chloride 108 H (98-107) mmol/L Carbon Dioxide 17 L (22-30) mmol/L Anion Gap 17.5 H (5-15) MEQ/L BUN 25 H (7-17) mg/dL Creatinine 1.16 H (0.52-1.04) mg/dL Estimated GFR 52.0 ML/MIN Glucose 159 H (74-106) mg/dL Calcium 8.7 (8.4-10.2) mg/dL Total Bilirubin 0.50 (0.2-1.3) mg/dL AST 38 H (14-36) U/L ALT 41 H (0-35) U/L Alkaline Phosphatase 108 (38-126) U/L Serum Total Protein 6.6 (6.3-8.2) g/dL Albumin 4.4 (3.5-5.0) g/dL Influenza Type A Ag NEGATIVE (NEGATIVE) Influenza Type B Ag NEGATIVE (NEGATIVE) RSV (PCR) NEGATIVE (NEGATIVE) SARS-CoV-2 (PCR) NEGATIVE (NEGATIVE) - Progress Progress: improved Progress Note: 64-year-old female presents to our ED for evaluation of nausea vomiting diarrhea generalized weakness. Patient incontinence of stool. Laboratory workup reveals metabolic acidosis with a bicarb of 17. Patient also has dehydration with acute renal injury. Patient's last creatinine was 0.92. Current creatinine is 1.16. Patient has a leukocytosis of 15. UA ordered however pat ient unable to produce urine likely secondary to dehydration. We will have to assess a UA to determine whether or not a UTI is contributing to this leukocytosis. Patient initially received normal saline. IV fluids switched to lactated ringer secondary to lactic acidosis. Patient states she feels somewhat better but is not ready for discharge. Patient will require further evaluation and treatment to address the metabolic acidosis dehydration acute renal injury and generalized weakness. Patient agreed to admission to [facility] for further evaluation and treatment. Case discussed with Dr. Cruz hospitalist who accepts admission to observation at 4:33 AM. Portions of this note were created with voice recognition technology. There may be grammatical, spelling, punctuation or sound alike errors Complexity of problem addressed is moderate acute complicated. No critical care time. Complexity of data reviewed and analyzed as extensive. Test ordered pilar t reviewed results analyzed and correlated clinically with history and physical exam. Management discussed with hospitalist who accepts admission to observation. Risk of complication and or risk of morbidity/mortality of patient management is high. Patient requires hospitalization for further evaluation and treatment. Vital stable. Time spent admit patient approximately 15 minutes. Plan of care established for shared decision making. No social determinants of health present to impede follow-up. Portions of this note were created with voice recognition technology. There may be grammatical, spelling, punctuation or sound alike errors 01/27/25 04:36 01/27/25 04:37 Counseled pt/family regarding: lab results, diagnosis - Departure Departure Disposition: Observation Clinical Impression: Nausea vomiting and diarrhea, Generalized weakness, Leukocytosis, Metabolic acidosis, Acute renal injury Condition: Stable Critical Care Time: No Referrals: JESS ORELLANA MD [Primary Care Provider] - Follow up/PCP as directed
[2025-01-27] MEDS ORDERED: Lactated Ringers 1,000 ML IV ONE (04:32)
[2025-01-27] MEDS: Lactated Ringers 1,000 ML IV SCH ×2 (04:34→06:00)
[2025-01-27 05:14] LABS: Appearance Clear (Clear); Bacteria None Seen /HPF (None Seen); Bilirubin Moderate (Negative); Blood Negative (Negative); Epithelial Cells Rare /HPF (None Seen); Glucose, Urine Negative (Negative); Ketones Trace (Negative); Leukocyte Esterase Trace (Negative); Nitrite Negative (Negative); Protein,Urine Dip 30 (Negative); Specific Gravity >=1.030 (1.005-1.030); WBC 0-2 /HPF (0-5)
[2025-01-27] MEDS ORDERED: TYLENOL 325 MG PO PRN (05:22)
--- NOTE | 2025-01-27 05:38 | PCM.HP ---
History of Present Illness - Chief Complaint Chief Complaint: Nausea vomiting diarrhea, dehydration Date: 01/27/25 History of Present Illness: is a 64 year old female with a history of hyperlipidemia, GERD, and allergies (history of anaphylaxis with mushrooms) who presented to the ED with nausea, vomiting, diarrhea, and generalized weakness. Upon arrival to the ED patient was incontinent of stool. Patient reports that her symptoms started approximately 2 hours prior to arrival. Patient also reports that she was on vacation in [place]. Patient and her had a viral illness then. A local physician prescribed a Z-Darrion and steroids. Patient has had several bowel movements while in our ED. The patient also reports intermittent abdominal cramping without focal or lateralizing abdominal pain. In the ED, the patient declined a CT abdomen/pelvis. Upon arrival to the floor, the patient was noted to pass blood in her stool. - Review of Systems Constitutional: No Symptoms Eyes: No Symptoms Ears, Nose, & Throat: No Symptoms Respiratory: No Symptoms Cardiac: No Symptoms Abdominal/Gastrointestinal: Abdominal Pain, Nausea, Vomiting, Diarrhea, Hematochezia Genitourinary Symptoms: No Symptoms Musculoskeletal: No Symptoms Skin: No Symptoms Neurological: No Symptoms Psychological: No Symptoms Endocrine: No Symptoms Hematologic/Lymphatic: No Symptoms Immunological/Allergic: No Symptoms All Other Systems: Reviewed and Negative Medications & Allergies Home Medications: Home Medication List Trandolapril/Verapamil HCl [Tarka ER 1-240 mg Tablet] 4 - 240 mg PO DAILY 01/03/15 [History Confirmed 01/27/25] Bupropion HCl Xl 150 mg [Wellbutrin XL 150 MG] 150 mg PO DAILY 02/25/19 [History Confirmed 01/27/25] Atorvastatin Calcium [Lipitor 20MG Tablet] 20 mg PO HS 08/23/21 [History Confirmed 01/27/25] Omeprazole 40 mg PO HS 08/23/21 [History Confirmed 01/27/25] Cetirizine HCl [Zyrtec] 10 mg PO DAILY 08/29/21 [History Confirmed 01/27/25] Calcium Carb/D3/Magnesium/Zinc [Yamil Mag Zinc-D Tablet] 1 tab PO DAILY 06/21/24 [History Confirmed 01/27/25] Allergies/Adverse Reactions: Allergies Allergy/AdvReac Type Severity Reaction Status Date / Time mushroom Allergy Severe Anaphylactic Verified 01/27/25 03:42 Reaction - Past Medical History Past Medical History: Yes Neurological History: No Pertinent History ENT History: No Pertinent History Cardiac History: High Cholesterol, Hypertension Respiratory History: No Pertinent History Endocrine Medical History: No Pertinent History Musculoskelatal History: No Pertinent History GI Medical History: GERD History: No Pertinent History Pyscho-Social History: No Pertinent History Reproductive Disorders: No Pertinent History - Past Surgical History Past Surgical History: Yes Neuro Surgical History: No Pertinent History Cardiac History: No Pertinent History Respiratory Surgery: No Pertinent History GI Surgical History: No Pertinent History Genitourinary Surgical Hx: No Pertinent History Musculskeletal Surgical Hx: Orthopedic Surgery Female Surgical History: No Pertinent History Other Surgical History: colonoscopy, left wrist Significant Family History: no pertinent family hx - Social History Smoking Status: Former smoker How long have you smoked: yrs Exposure to second hand smoke: No Alcohol: Rarely Drug Use: none - Social Determinants of Health Will the patient participate in the screening: Yes Do you worry about a steady place to live?: No Do you have any problems with any of the following?: No known problems In the past 12 months,have you had to go without utilities?: No Have you or anyone in your house had to go without enough: No Transportation Issues: No Has anyone in your support network made you feel unsafe?: No - Physical Exam Vital Signs: Vital Signs - 24 hr Temp Pulse Resp BP BP Pulse Ox 01/27/25 05:08 63 114/80 95 01/27/25 05:01 67 105/70 96 01/27/25 04:40 99 01/27/25 04:00 63 16 102/73 99 01/27/25 03:33 109/65 01/27/25 03:14 96.0 F 66 16 115/72 99 General Appearance: mild distress, alert Neurologic Exam: alert, oriented x 3, cooperative, mover II-XII nml as tested, normal mood/affect, nml cerebellar function Eye Exam: PERRL/EOMI, eyes nml inspection Ears, Nose, Throat Exam: normal ENT inspection Neck Exam: normal inspection, non-tender, supple, full range of motion Respiratory Exam: normal breath sounds, lungs clear, airway intact Cardiovascular Exam: regular rate/rhythm, normal heart sounds Gastrointestinal/Abdomen Exam: soft, normal bowel sounds Back Exam: normal range of motion Extremity Exam: normal inspection, normal range of motion Skin Exam: normal color Results - Labs Lab/Micro Results: Lab Results-Last 24 Hours 01/27/25 01/27/25 01/27/25 Range/Units 03:39 03:39 03:39 WBC 15.4 H (3.98-10.04) x10^3/uL RBC 4.08 (3.93-5.22) x10^6/uL Hgb 13.1 (11.2-15.7) g/dL Hct 40.1 (34.1-44.9) % MCV 98.3 H (79.4-94.8) fL MCH 32.1 (25.6-32.2) pg MCHC 32.7 (32.2-35.5) g/dL RDW 12.3 (11.7-14.4) % Plt Count 407 H (182-369) x10^3/uL MPV 9.0 L (9.4-12.3) fL Gran % 68.2 (34.0-71.1) % Immature Gran % (Auto) 1.8 H (0.001-0.429) % Nucleat RBC Rel Count 0.0 (0.00-0.2) % Eos # (Auto) 0.07 (0.04-0.36) x10^3/uL Immature Gran # (Auto) 0.28 H (0.001-0.031) x10^3u/L Absolute Lymphs (auto) 3.35 (1.18-3.74) x10^3/uL Absolute Monos (auto) 1.13 H (0.24-0.86) x10^3/uL Absolute Nucleated RBC 0.00 (0.00-0.012) x10^3u/L Lymphocytes % 21.8 (19.3-51.7) % Monocytes % 7.4 (4.7-12.5) % Eosinophils % 0.5 L (0.7-5.8) % Basophils % 0.3 (0.1-1.2) % Absolute Granulocytes 10.48 H (1.56-6.13) x10^3/uL Basophils # 0.05 (0.01-0.08) x10^3/uL Sodium 139 (135-145) mmol/L Potassium 3.7 (3.5-5.1) mmol/L Chloride 108 H (98-107) mmol/L Carbon Dioxide 17 L (22-30) mmol/L Anion Gap 17.5 H (5-15) MEQ/L BUN 25 H (7-17) mg/dL Creatinine 1.16 H (0.52-1.04) mg/dL Estimated GFR 52.0 ML/MIN Glucose 159 H (74-106) mg/dL Calcium 8.7 (8.4-10.2) mg/dL Total Bilirubin 0.50 (0.2-1.3) mg/dL AST 38 H (14-36) U/L ALT 41 H (0-35) U/L Alkaline Phosphatase 108 (38-126) U/L Serum Total Protein 6.6 (6.3-8.2) g/dL Albumin 4.4 (3.5-5.0) g/dL Urine Color (Yellow) Urine Appearance (Clear) Urine pH (4.6-8.0) Ur Specific Sterling (1.005-1.030) Urine Protein (Negative) Urine Glucose (UA) (Negative) mg/dL Urine Ketones (Negative) Urine Blood (Negative) Urine Nitrite (Negative) Urine Bilirubin (Negative) Urine Urobilinogen (0.2) mg/dL Ur Leukocyte Esterase (Negative) U Hyaline Cast (Auto) (0-2) /LPF Urine Microscopic RBC (0-5) /HPF Urine Microscopic WBC (0-5) /HPF Ur Epithelial Cells (None Seen) /HPF Urine Bacteria (None Seen) /HPF Urine Culture Reflexed (NO) Influenza Type A Ag NEGATIVE (NEGATIVE) Influenza Type B Ag NEGATIVE (NEGATIVE) RSV (PCR) NEGATIVE (NEGATIVE) SARS-CoV-2 (PCR) NEGATIVE (NEGATIVE) 01/27/25 Range/Units 04:43 WBC (3.98-10.04) x10^3/uL RBC (3.93-5.22) x10^6/uL Hgb (11.2-15.7) g/dL Hct (34.1-44.9) % MCV (79.4-94.8) fL MCH (25.6-32.2) pg MCHC (32.2-35.5) g/dL RDW (11.7-14.4) % Plt Count (182-369) x10^3/uL MPV (9.4-12.3) fL Gran % (34.0-71.1) % Immature Gran % (Auto) (0.001-0.429) % Nucleat RBC Rel Count (0.00-0.2) % Eos # (Auto) (0.04-0.36) x10^3/uL Immature Gran # (Auto) (0.001-0.031) x10^3u/L Absolute Lymphs (auto) (1.18-3.74) x10^3/uL Absolute Monos (auto) (0.24-0.86) x10^3/uL Absolute Nucleated RBC (0.00-0.012) x10^3u/L Lymphocytes % (19.3-51.7) % Monocytes % (4.7-12.5) % Eosinophils % (0.7-5.8) % Basophils % (0.1-1.2) % Absolute Granulocytes (1.56-6.13) x10^3/uL Basophils # (0.01-0.08) x10^3/uL Sodium (135-145) mmol/L Potassium (3.5-5.1) mmol/L Chloride (98-107) mmol/L Carbon Dioxide (22-30) mmol/L Anion Gap (5-15) MEQ/L BUN (7-17) mg/dL Creatinine (0.52-1.04) mg/dL Estimated GFR ML/MIN Glucose (74-106) mg/dL Calcium (8.4-10.2) mg/dL Total Bilirubin (0.2-1.3) mg/dL AST (14-36) U/L ALT (0-35) U/L Alkaline Phosphatase (38-126) U/L Serum Total Protein (6.3-8.2) g/dL Albumin (3.5-5.0) g/dL Urine Color Dark Yellow A (Yellow) Urine Appearance Clear (Clear) Urine pH 5.0 (4.6-8.0) Ur Specific Sterling >=1.030 A (1.005-1.030) Urine Protein 30 (Negative) Urine Glucose (UA) Negative (Negative) mg/dL Urine Ketones Trace A (Negative) Urine Blood Negative (Negative) Urine Nitrite Negative (Negative) Urine Bilirubin Moderate A (Negative) Urine Urobilinogen 1.0 A (0.2) mg/dL Ur Leukocyte Esterase Trace A (Negative) U Hyaline Cast (Auto) 11-20 (0-2) /LPF Urine Microscopic RBC 6-10 A (0-5) /HPF Urine Microscopic WBC 0-2 (0-5) /HPF Ur Epithelial Cells Rare (None Seen) /HPF Urine Bacteria None Seen (None Seen) /HPF Urine Culture Reflexed NO (NO) Influenza Type A Ag (NEGATIVE) Influenza Type B Ag (NEGATIVE) RSV (PCR) (NEGATIVE) SARS-CoV-2 (PCR) (NEGATIVE) Assessment/Plan (1) Nausea vomiting and diarrhea Current Visit: Yes Status: Acute Assessment & Plan: Supportive care. Possible gastroenteritis. IV fluids. Antiemetics. Analgesia for cramping. Code(s): R11.2 - NAUSEA WITH VOMITING, UNSPECIFIED; R19.7 - DIARRHEA, UNSPECIFIED (2) Hematochezia Current Visit: Yes Status: Acute Assessment & Plan: No anemia. Will recheck hemoglobin to trend. IV PPI. Code(s): K92.1 - MELENA (3) Leukocytosis Current Visit: Yes Status: Acute Assessment & Plan: Likely due to gastroenteritis. May need to consider CDif assay if symptoms are persistent (was recently on antibiotics) Code(s): D72.829 - ELEVATED WHITE BLOOD CELL COUNT, UNSPECIFIED (4) Metabolic acidosis Current Visit: Yes Status: Acute Assessment & Plan: IV LR. Monitor electrolytes. Code(s): E87.20 - ACIDOSIS, UNSPECIFIED (5) Acute renal injury Current Visit: Yes Status: Acute Assessment & Plan: IV fluids. Monitor renal function and electrolytes. Code(s): N17.9 - ACUTE KIDNEY FAILURE, UNSPECIFIED Telemedicine Encounter - Telemedicine Encounter Telemedicine Encounter: "The entirety of this encounter was performed via Telemedicine" This visit was performed using real-time audio and video connection between my location and thepatients locationwith the assistance of a surrogateat the patients location. Written or verbal consent was obtained from the patient/guardian to perform this visit usingsynchrJelly HQtelemedicine technology. Any patient questions regarding the telemedicine interaction were answered. Please note that this admission required 43 minutes to complete.
[2025-01-27] MEDS: MORPHINE SULFATE 2 MG INJ IV PRN ×2 (05:56→14:34)
[2025-01-27] MEDS: PROTONIX 40 MG IV IV SCH ×2 (05:57→21:09)
[2025-01-27 06:07] LABS: Hematocrit 38.9 % (34.1-44.9); Hemoglobin 12.8 g/dL (11.2-15.7)
[2025-01-27] MEDS ORDERED: MEDICATION INTERVENTION MC SCH ×2 (07:15)
--- NOTE | 2025-01-27 09:14 | XRAY ---
Indication: Abdominal pain, nausea, vomiting, diarrhea, and blood in stool. Multiple contiguous axial images obtained through the abdomen and pelvis without contrast. Comparison: June 21, 2024 Lung bases remain clear. Heart not enlarged. Noncontrasted stomach and bowel loops remain nonobstructed. Appendix not seen. New distal transverse and proximal descending mild pericolonic stranding favoring colitis. No free fluid/air. Stable minimal sigmoid diverticulosis and small right mid renal cyst. Remaining liver, gallbladder, pancreas, spleen, adrenal glands, kidneys, ureters, bladder, and uterus are unremarkable for noncontrast exam. Again minimal aortoiliac calcifications without AAA. Osseous structures intact again with mild/moderate degenerative changes throughout thoracolumbar spine and mild levorotoscoliosis centered at L3. Impression: 1. New findings for mild noncomplicated left hemicolon colitis. 2. Again chronic findings including sigmoid diverticulosis, right renal cyst, arteriosclerotic disease, and chronic bony findings.
[2025-01-27] MEDS ORDERED: TRANDOLAPRIL PO SCH (10:00)
[2025-01-27] MEDS ORDERED: VERAPAMIL HCL PO SCH (10:00)
[2025-01-27] MEDS ORDERED: CALCIUM CARB PO SCH (10:00)
[2025-01-27] MEDS ORDERED: [UNRECOGNIZED DRUG - OTHER] PO SCH (10:00)
[2025-01-27] MEDS ORDERED: MAGNESIUM PO SCH (10:00)
[2025-01-27] MEDS ORDERED: [UNRECOGNIZED DRUG - OTHER] PO SCH (10:00)
[2025-01-27] MEDS ORDERED: NON-FORMULARY ITEM (Cetirizine Hcl [Zyrtec] 10 MG Capsule) PO SCH (10:00)
[2025-01-27] MEDS ORDERED: ZINC PO SCH (10:00)
[2025-01-27] MEDS ORDERED: D3 PO SCH (10:00)
[2025-01-27] MEDS: Zofran 4 MG/2 ML VIAL IV PRN (10:11)
[2025-01-27] MEDS: Wellbutrin XL 150 MG PO SCH (10:11)
[2025-01-27] MEDS: CLARITIN 10 MG PO SCH (10:11)
[2025-01-27] MEDS: TUCKS TP PRN (10:16)
[2025-01-27 12:32] LABS: ALBUMIN 4.6 g/dL (3.5-5.0); ANION GAP 17.1 MEQ/L (5-15); BILIRUBIN,TOTAL 0.5 mg/dL (0.2-1.3); Calcium 8.7 mg/dL (8.4-10.2); Creatinine 1 0.86 mg/dL (0.52-1.04); EST GLOMERULAR FILTRATION RATE 74.5 ML/MIN; Potassium 4.4 mmol/L (3.5-5.1); Total Protein 6.8 g/dL (6.3-8.2)
[2025-01-27] MEDS: Cipro 500 MG PO SCH (13:11)
[2025-01-27] MEDS: PATIENT OWN MEDICATION PO SCH ×2 (13:11)
[2025-01-27] MEDS: Flagyl 500 MG PO SCH (13:11)
[2025-01-27] MEDS: Acidophilus TABLET PO SCH (13:11)
[2025-01-27] MEDS: SODIUM BICARBONATE PO SCH (14:34)
[2025-01-27] MEDS: APRESOLINE 20 MG/ML INJ IV PRN (20:52)
[2025-01-27] MEDS: TYLENOL 325 MG PO PRN (21:09)
[2025-01-27] MEDS: Compazine 10 MG/2 ML IM PRN (21:11)
[2025-01-27] MEDS ORDERED: NON-FORMULARY ITEM (Atorvastatin Calcium 20 MG Tab) PO SCH (22:00)
[2025-01-27] MEDS ORDERED: ZOCOR 20MG PO SCH (22:00)
[2025-01-28 04:57] LABS: Hematocrit 36.5 % (34.1-44.9); Hemoglobin 12.3 g/dL (11.2-15.7); Mean Cell Volume 96.8 fL (79.4-94.8); Mean Corpuscular Hemoglobin 32.6 pg (25.6-32.2); Mean Corpuscular Hgb Concent. 33.7 g/dL (32.2-35.5); Mean Platelet Volume 8.9 fL (9.4-12.3); Platelet Count 342 x10^3/uL (182-369); Red Blood Count 3.77 x10^6/uL (3.93-5.22); Red Cell Distribution Width 12.6 % (11.7-14.4)
[2025-01-28 05:12] LABS: ALBUMIN 4.1 g/dL (3.5-5.0); ANION GAP 12.7 MEQ/L (5-15); BILIRUBIN,TOTAL 0.6 mg/dL (0.2-1.3); Calcium 8.4 mg/dL (8.4-10.2); Creatinine 1 0.74 mg/dL (0.52-1.04); EST GLOMERULAR FILTRATION RATE 89.2 ML/MIN; Potassium 3.6 mmol/L (3.5-5.1); Total Protein 6.3 g/dL (6.3-8.2)
[2025-01-28 07:47] VITALS: RESP 16
--- NOTE | 2025-01-28 10:05 | PCM.DS ---
Discharge Summary Date of Admission: 01/27/25 05:14 Date of Discharge: 01/28/25 Admitting Physician: LARISSA ROBERTS MD Primary Care Provider: JESS ORELLANA JULIETTE Allergies Allergies mushroom Allergy (Severe, Verified 01/27/25 03:42) Anaphylactic Reaction Hospital Summary - Hospital Course Hospital Course: Ms. 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 Symptoms began approximately two hours prior to arrival, and she was incontinent of stool upon presentation. She reported recent travel to [place], during which both she and her experienced a viral illness; she was prescribed a Z-Darrion and steroids by a local physician. In the ED, she experienced multiple bowel movements and intermittent abdominal cramping without focal pain. She initially declined a CT scan but later requested one due to continued discomfort. Imaging revealed new findings of mild, uncomplicated left-sided colitis, along with chronic findings including sigmoid diverticulosis, a right renal cyst, arteriosclerotic changes, and chronic bony abnormalities. She began treatment with ciprofloxacin, metronidazole, and probiotics yesterday. Since then, her abdominal cramping has nearly resolved, and she has had no further episodes of diarrhea. Stool studies are pending. IV fluids were discontinued, and she resumed a regular diet. If this afternoon she reports feeling better she is interested in discharge. She denies chest pain, abdominal pain, nausea, vomiting, or diarrhea. - Vitals & Intake/Output Vital Signs: Vital Signs Temperature 97.6 F 01/28/25 07:46 Pulse Rate 98 H 01/28/25 07:46 Respiratory Rate 16 01/28/25 07:46 Blood Pressure 166/81 01/28/25 07:46 O2 Sat by Pulse Oximetry 94 L 01/28/25 07:46 Intake & Output: Intake & Output 01/25/25 01/26/25 01/27/25 01/28/25 11:59 11:59 11:59 11:59 Intake Total 120 3894 Output Total 350 Balance 120 3544 Weight 74.8 kg - Lab Result Diagrams: 01/28/25 04:30 01/28/25 04:30 Lab Results-Last 24 Hrs: Lab Results-Last 24 Hours 01/27/25 01/28/25 01/28/25 Range/Units 12:10 04:30 04:30 WBC 18.0 H (3.98-10.04) x10^3/uL RBC 3.77 L (3.93-5.22) x10^6/uL Hgb 12.3 (11.2-15.7) g/dL Hct 36.5 (34.1-44.9) % MCV 96.8 H (79.4-94.8) fL MCH 32.6 H (25.6-32.2) pg MCHC 33.7 (32.2-35.5) g/dL RDW 12.6 (11.7-14.4) % Plt Count 342 (182-369) x10^3/uL MPV 8.9 L (9.4-12.3) fL Sodium 137 134 L (135-145) mmol/L Potassium 4.4 3.6 (3.5-5.1) mmol/L Chloride 107 103 (98-107) mmol/L Carbon Dioxide 17 L 22 (22-30) mmol/L Anion Gap 17.1 H 12.7 (5-15) MEQ/L BUN 22 H 9 (7-17) mg/dL Creatinine 0.86 0.74 (0.52-1.04) mg/dL Estimated GFR 74.5 89.2 ML/MIN Glucose 128 H 166 H (74-106) mg/dL Hemoglobin A1c (4.5-6.0) % Calcium 8.7 8.4 (8.4-10.2) mg/dL Total Bilirubin 0.50 0.60 (0.2-1.3) mg/dL AST 35 29 (14-36) U/L ALT 39 H 31 (0-35) U/L Alkaline Phosphatase 110 85 (38-126) U/L Serum Total Protein 6.8 6.3 (6.3-8.2) g/dL Albumin 4.6 4.1 (3.5-5.0) g/dL 01/28/25 Range/Units 04:35 WBC (3.98-10.04) x10^3/uL RBC (3.93-5.22) x10^6/uL Hgb (11.2-15.7) g/dL Hct (34.1-44.9) % MCV (79.4-94.8) fL MCH (25.6-32.2) pg MCHC (32.2-35.5) g/dL RDW (11.7-14.4) % Plt Count (182-369) x10^3/uL MPV (9.4-12.3) fL Sodium (135-145) mmol/L Potassium (3.5-5.1) mmol/L Chloride (98-107) mmol/L Carbon Dioxide (22-30) mmol/L Anion Gap (5-15) MEQ/L BUN (7-17) mg/dL Creatinine (0.52-1.04) mg/dL Estimated GFR ML/MIN Glucose (74-106) mg/dL Hemoglobin A1c 5.80 (4.5-6.0) % Calcium (8.4-10.2) mg/dL Total Bilirubin (0.2-1.3) mg/dL AST (14-36) U/L ALT (0-35) U/L Alkaline Phosphatase (38-126) U/L Serum Total Protein (6.3-8.2) g/dL Albumin (3.5-5.0) g/dL Micro Results-Entire Visit: Microbiology 01/27/25 Unknown Stool Culture Result 1 - Final Stool Not Reportable Stool Culture Result 2 - Final Not Reportable Stool Culture Result 3 - Final Not Reportable Stool Culture Result 4 - Final Not Reportable Stool Culture Organism Suscept - Final Not Reportable Campylobacter Result 1 - Final Not Reportable Campylobacter Result 2 - Final Not Reportable Campylobactor Result 3 - Final Not Reportable Campylobacter Result 4 - Final Not Reportable Campylobactor Susceptibility - Final Not Reportable - Radiology Exams Ordered Rad Exams-Entire Visit: Radiology Procedures Category Date Time Status ABDOMEN AND PELVIS W/0 CONTRAS [CT] Routine Exams 01/27/25 08:21 Completed Discharge Exam General Appearance: no apparent distress, alert, obese Neurologic Exam: alert, oriented x 3, cooperative, normal mood/affect, nml cerebellar function, sensation nml, No motor deficits Eye Exam: PERRL, EOMI, eyes nml inspection Ears, Nose, Throat Exam: normal ENT inspection, pharynx normal, moist mucous membranes Neck Exam: normal inspection, non-tender, supple, full range of motion Respiratory Exam: normal breath sounds, lungs clear, No respiratory distress Cardiovascular Exam: regular rate/rhythm, normal heart sounds Gastrointestinal/Abdomen Exam: soft, No tenderness, No mass Pelvic Exam: deferred Rectal Exam: deferred Back Exam: normal inspection, normal range of motion, No CVA tenderness, No vertebral tenderness Extremity Exam: normal inspection, normal range of motion Skin Exam: normal color, warm, dry Final Diagnosis/Problem List - Final Discharge Diagnosis/Problem (1) Colitis Current Visit: Yes Status: Acute Assessment & Plan: - As seen on CT abd/pelvis - Flagyl, cipro - IVF- stopped today - Pain improved today - CBC, CMP reviewed Code(s): K52.9 - NONINFECTIVE GASTROENTERITIS AND COLITIS, UNSPECIFIED (2) Leukocytosis Current Visit: Yes Status: Acute Assessment & Plan: - WBC 18 - 2:2 colitis - Will need f/u OP labs with PCP Code(s): D72.829 - ELEVATED WHITE BLOOD CELL COUNT, UNSPECIFIED (3) Acute renal injury Current Visit: Yes Status: Resolved Assessment & Plan: - resolved Code(s): N17.9 - ACUTE KIDNEY FAILURE, UNSPECIFIED (4) Hematochezia Current Visit: Yes Status: Resolved Assessment & Plan: - resolved - + hemorrhoids- tucks pads - Hgb stable at 12.3 Code(s): K92.1 - MELENA (5) Metabolic acidosis Current Visit: Yes Status: Resolved Assessment & Plan: - Resolved with IVF - IVF stopped Code(s): E87.20 - ACIDOSIS, UNSPECIFIED (6) Nausea vomiting and diarrhea Current Visit: Yes Status: Resolved Assessment & Plan: - Resolved - Probiotics - Antiemetic Code(s): R11.2 - NAUSEA WITH VOMITING, UNSPECIFIED; R19.7 - DIARRHEA, UNSPECIFIED (7) Obesity (BMI 30.0-34.9) Current Visit: Yes Status: Chronic Assessment & Plan: - Advised diet and exercise control Code(s): E66.811 - OBESITY, CLASS 1 - Discharge Discharge Date: 01/28/25 Disposition: Home, Self-Care Condition: Stable Prescriptions: New Lactobacillus Acidophilus [Acidophilus TABLET] 1 tab PO DAILY 30 Days #30 tablet Ciprofloxacin [Cipro 500 MG] 500 mg PO BID 7 Days #14 tablet Metronidazole 500 mg [Flagyl 500 MG] 500 mg PO Q8HT 7 Days #21 tablet Witch Mary Ellen [Tucks] 1 pad TP DAILY PRN PRN pad PRN Reason: Pain Continue Trandolapril/Verapamil HCl [Tarka ER 1-240 mg Tablet] 4 - 240 mg PO DAILY Bupropion HCl Xl 150 mg [Wellbutrin XL 150 MG] 150 mg PO DAILY Omeprazole 40 mg PO HS Atorvastatin Calcium [Lipitor 20MG Tablet] 20 mg PO HS Cetirizine HCl [Zyrtec] 10 mg PO DAILY Calcium Carb/D3/Magnesium/Zinc [Yamil Mag Zinc-D Tablet] 1 tab PO DAILY Instructions: Colitis - Discharge instructions Follow up with: JESS ORELLANA MD [Primary Care Provider] - Forms: Discharge Instructions
[2025-01-28 12:05] VITALS: BP 125/67; PULSE 85; TEMP 97.7; O2SAT 93
== END 2025-01-28 12:27 | disposition home or self-care (01) ==
LOC: ED 03:05 → MED SURG 05:14
PROVIDERS: ADMIT Internal Medicine; ATTEND Internal Medicine
DX: K52.9 Noninfective gastroenteritis and colitis, unspecified (principal); R11.2 Nausea with vomiting, unspecified; R53.1 Weakness; Z79.899 Other long term (current) drug therapy; D72.829 Elevated white blood cell count, unspecified; E87.20 Acidosis, unspecified; K57.30 Diverticulosis of large intestine without perforation or abscess without bleeding; N28.1 Cyst of kidney, acquired; N17.9 Acute kidney failure, unspecified; E66.811 Obesity, class 1; K92.1 Melena
CPT/HCPCS: 0241U; 36415; 74176; 80053; 81001; 83036; 85014; 85018; 85025; 85027; 93268; 99285; G0378; Q3014; J0360; J2270; J2405; A9270-GY